=== PATIENT | female | born 1980 | race Hispanic/Latino ===

== ENCOUNTER 2025-01-28 20:41 | Emergency (ER) | payer SELFPAY ==
[~2025-01-28] VITALS: Ht 157.5 cm; Wt 68.0 kg
[2025-01-28 20:50] VITALS: PULSE 74; RESP 18; TEMP 98.2
[2025-01-28] MEDS ORDERED: SILVER NITRATE SWABS ONE (21:11)
[2025-01-28] MEDS: SODIUM CHLORIDE 0.9% 1000ML 1,000 ML IV STA (22:16)
[2025-01-28] MEDS: ONDANSETRON HCL INJ 2MG/ML 2ML 2 MG/ML VIAL IV ONE (22:16)
[2025-01-28] MEDS: KETOROLAC TROMETHAMINE 30 MG/ML VIAL IV ONE (22:17)
[2025-01-28 23:50] VITALS: BP 143/75; PULSE 72; RESP 18; TEMP 98; O2SAT 100
== END 2025-01-28 23:50 | disposition home or self-care (01) ==
LOC: FSED 21:05
DX: K91.840 Postprocedural hemorrhage of a digestive system organ or structure following a digestive system procedure (principal); D64.9 Anemia, unspecified; R42 Dizziness and giddiness
CPT/HCPCS: 80053; 85025; 85610; 96374; 96375; 99283; J0696; J1885; J2405; J7030

== ENCOUNTER 2025-01-30 11:55 | Emergency (ER) | payer SELFPAY ==
[~2025-01-30] VITALS: Ht 157.5 cm; Wt 67.6 kg
[2025-01-30 12:03] VITALS: PULSE 82; RESP 18; TEMP 97.5
[2025-01-30 12:22] VITALS: BP 132/68; RESP 18; O2SAT 99
== END 2025-01-30 12:24 | disposition home or self-care (01) ==
LOC: FSED 12:10
DX: Z48.814 Encounter for surgical aftercare following surgery on the teeth or oral cavity (principal)
CPT/HCPCS: 99282